=== PATIENT | female | born 1960 | race Caucasian/White ===

== ENCOUNTER 2024-07-07 16:31 | Emergency (ER) | payer SELFPAY ==
[2024-07-07] MEDS ORDERED: ONDANSETRON 4 MG/2 ML VIAL ONE (16:42)
[2024-07-07] MEDS ORDERED: MORPHINE 4 MG/ML SYR ONE (16:42)
--- NOTE | 2024-07-07 17:23 | RAD REPORT ---
EXAMINATION: Stone Protocol CLINICAL INDICATION: Female, 64 years old.RIGHT FLANK PAIN TECHNIQUE: CT abdomen and pelvis was performed using a stone protocol, without IV contrast, as per de partment protocol. Axial, sagittal and coronal reconstructions were obtained. One or more of the following dose reduction techniques were used: Automated exposure control, adjustment of the mA and/o r kV according to the patient size, and/or iterative reconstruction. Unless otherwise specified, incidental findings do not require dedicated imaging follow-up. [id number]. IV CONTRAST: Not administered. COMPARISON: None FINDINGS: The lack of intravenous contrast limits the sensitivity of this exam for evaluation of solid visceral organs, vascular structures, and retroperitoneum. LOWER CHEST: No acute process identified.No significant pericardial effusion. Breast prostheses. Smal l hiatal hernia UPPER GI: No significant abnormality. LIVER: Benign appearing low density liver lesions. No suspicious mass. GALLBLADDER/BILE DUCTS: No biliary ductal dilatation.? PANCREAS: No mass, ductal dilation, or carolyn-pancreatic fluid. SPLEEN: Unremarkable. ADRENALS: No adrenal masses. KIDNEYS AND URETERS: Mild right-sided hydroureteronephrosis secondary to a 3 mm stone at the right UV J.Limited evaluation for renal lesions in the absence of IV contrast.Possible punctate renal calculi versus papillary tip calcifications.Right-sided perinephric stranding. ABDOMINAL AORTA AND OTHER VESSELS: Mild atherosclerotic changes. PERITONEUM: No abnormal free fluid. No free air. LYMPH NODES: No pathologic lymphadenopathy. ABDOMINAL WALL: Unremarkable SMALL BOWEL/COLON: Small bowel has normal course and caliber. No colonic wall thickening or pericolon ic inflammatory changes.Normal appendix. URINARY BLADDER: Underdistended but grossly unremarkable. REPRODUCTIVE ORGANS: No pathologic process. MUSCULOSKELETAL: No acute or suspicious osseous abnormality. ADDITIONAL FINDINGS: None. IMPRESSION: Mild right-sided hydroureteronephrosis secondary to a 3 mm stone at the right UVJ.
[2024-07-07] MEDS ORDERED: MAGNESIUM SULFATE 1 gm IVPB 1 GM/100 ML BAG IV ONE (17:32)
[2024-07-07] MEDS ORDERED: KETOROLAC 30 MG/ML INJ ONE (17:32)
[2024-07-07] MEDS ORDERED: TAMSULOSIN 0.4 MG SR CAP ONE (17:32)
[2024-07-07 17:46] LABS: Potassium 3.7 mEq/L (3.5-5.1)
[2024-07-07 17:47] LABS: Anion Gap 10.7 mEq/L (5.0-15.0)
[2024-07-07 17:48] LABS: Albumin 4.4 g/dL (3.4-5.0); Bilirubin Total 0.6 mg/dL (0.2-1.0); Globulin 4.3 g/dL (2.3-3.5); Protein, Total 8.7 g/dL (6.4-8.2)
[2024-07-07 17:49] LABS: RBC Red Blood Cell Count 4.71 M/uL (3.86-4.86)
[2024-07-07 17:50] LABS: Hematocrit 41.9 % (36.0-45.0); Hemoglobin 14.5 g/dL (12.0-15.0); MCH 30.8 pg (27.0-35.0); MCHC 34.6 g/dL (32.0-36.0); MCV 89.1 fL (80-100); Platelets 240 thou/uL (152-406)
[2024-07-07 17:51] LABS: Absolute Lymphocytes (CBC) 0.8 K/uL (0.7-4.9); Absolute Monocytes 0.5 K/uL (0.1-1.3); Absolute Neutrophil 10.6 K/uL (1.8-8.0); Basophils % 0.2 % (0-1.3); Lymphocytes % 6.7 % (15.3-44.8); MPV 9.2 fL (7.6-11.3); Neutrophils % 89.1 % (41.7-73.7); Nucleated Red Blood Cells % 0.2 % (0-0); Red Cell Distribution Width 13.4 % (12.1-15.2)
--- NOTE | 2024-07-07 18:20 | ER ---
Nurse's Notes [facility] Name: Maine Hernandez Age: 64 yrs Sex: Female : 1960 Arrival Date: 07/07/2024 Time: 16:31 Bed 17 Private MD: Diagnosis: Calculus of ureter Presentation: 07/07 16:37 Chief complaint: Patient states: right flank pain and vomiting that began this morning. aa5 Coronavirus screen: nausea, vomiting. Ebola Screen: Patient denies travel to an Ebola-affected area in the 21 days before illness onset. Initial Sepsis Screen: Does the patient meet any 2 criteria? No. Patient's initial sepsis screen is negative. Does the patient have a suspected source of infection? No. Patient's initial sepsis screen is negative. Risk Assessment: Do you want to hurt yourself or someone else? Patient reports no desire to harm self or others. Onset of symptoms was July 07, 2024. 16:37 Acuity: TIN 3 aa5 16:37 Method Of Arrival: Ambulatory aa5 Historical: - Allergies: 16:38 No Known Allergies; aa5 - Home Meds: 16:38 None [Active]; aa5 - PMHx: 16:38 Kidney stone; aa5 - PSHx: 16:38 breast implants; aa5 - Immunization history:: Adult Immunizations unknown. - Infectious Disease History:: Denies. - Social history:: Smoking status: Patient denies any tobacco usage or history of. - Family history:: not pertinent. - Hospitalizations: : No recent hospitalization is reported. Screenin:[address] [facility] ED Fall Risk Assessment (Adult) History of falling in the last 3 months, aa5 including since admission No falls in past 3 months (0 pts) Confusion or Disorientation No (0 pts) Intoxicated or Sedated No (0 pts) Impaired Gait No (0 pts) Mobility Assist Device Used No (0 pt) Altered Elimination No (0 pt) Score/Fall Risk Level 0 - 2 = Low Risk Oriented to surroundings, Maintained a safe environment, Educated pt \T\ family on fall prevention, incl call for assistance when getting out of bed, Assessed \T\ reinforced patient's understanding of fall precautions. Abuse screen: Denies threats or abuse. Nutritional screening: No deficits noted. Tuberculosis screening: No symptoms or risk factors identified. Assessment: 16:37 General: Appears uncomfortable, Behavior is calm, cooperative. Pain: Complains of pain aa5 in right flank Pain does not radiate. Quality of pain is described as sharp, Pain began today Is continuous. Neuro: Level of Consciousness is awake, alert, obeys commands, Oriented to person, place, time, situation. Cardiovascular: Patient's skin is warm and dry. Respiratory: Airway is patent Respiratory effort is even, unlabored, Respiratory pattern is regular, symmetrical. GI: Abdomen is round non-distended, Bowel sounds present X 4 quads. Abd is soft and non tender X 4 quads. Reports nausea, vomiting. : Reports difficulty voiding today. EENT: No signs and/or symptoms were reported regarding the EENT system. Derm: Skin is pink, warm \T\ dry. Musculoskeletal: Range of motion: intact in all extremities. 17:28 Reassessment: Patient states feeling better. Patient states symptoms have improved. aa5 17:28 Reassessment: Patient is alert, oriented x 3, equal unlabored respirations, skin aa5 warm/dry/pink. General: Appears comfortable. 18:52 Reassessment: Patient is alert, oriented x 3, equal unlabored respirations, skin aa5 warm/dry/pink. Patient states feeling better. Patient states symptoms have improved. Vital Signs: 16:37 BP 148 / 101; Pulse 85; Resp 18 S; Temp 97.6(TE); Pulse Ox 99% on R/A; Weight 77.11 kg aa5 (R); Height 5 ft. 5 in. (R); 17:40 BP 133 / 70; Pulse 80; Resp 18 S; Pulse Ox 99% on R/A; aa5 18:45 BP 121 / 78; Pulse 75; Resp 16 S; Pulse Ox 99% on R/A; aa5 16:37 Body Mass Index 28.29 (77.11 kg, 165.1 cm) aa5 ED Course: 16:37 Patient arrived in ED. aa5 16:37 Arm band placed on Patient placed in an exam room, on a stretcher. aa5 16:37 Patient has correct armband on for positive identification. Bed in low position. Call aa5 light in reach. Side rails up X 1. 16:38 Triage completed. aa5 16:38 Jt Shah MD is Attending Physician. rn 16:39 Mary Anne Denis, RN is Primary Nurse. aa5 16:42 No provider procedures requiring assistance completed. aa5 16:43 Initial lab(s) drawn, by me, sent to lab. Inserted saline lock: 20 gauge in right aa5 forearm, using aseptic technique. Blood collected. Flushed with 10 mL NS. 17:14 CT Stone Protocol In Process Unspecified. EDMS 18:20 Markell Mcleod MD is Referral Physician. rn 18:52 IV discontinued, intact, bleeding controlled, No redness/swelling at site. Pressure aa5 dressing applied. Administered Medications: 16:44 Drug: Ondansetron IVP 4 mg IVP once; over 2 minutes Route: IVP; Site: right forearm; aa5 16:50 Follow up: Response: No adverse reaction aa5 16:44 Drug: morphine IVP or IV 4 mg IVP once over 4 mins Route: IVP; Infused Over: 4 mins; aa5 Site: right forearm; 16:50 Follow up: Response: No adverse reaction aa5 17:37 Drug: Magnesium Sulfate IVPB 1 grams IVPB once over 1 hrs Route: IVPB; Infused Over: 1 aa5 hrs; Site: right forearm; 18:37 Follow up: IV Status: Completed infusion; IV Intake: 100ml aa5 17:37 Drug: Ketorolac IVP 15 mg IVP once Route: IVP; Site: right forearm; aa5 17:40 Follow up: Response: No adverse reaction aa5 17:38 Drug: Flomax PO 0.4 mg PO once Route: PO; aa5 18:52 Follow up: Response: No adverse reaction aa5 18:52 Drug: Ciprofloxacin PO 500 mg PO once Route: PO; aa5 18:52 Follow up: Response: No adverse reaction; Medication administered at discharge. aa5 Medication: 16:41 VIS not applicable for this client. aa5 Intake: 18:37 IV: 100ml; Total: 100ml. aa5 Outcome: 18:20 Discharge ordered by . rn 18:52 Discharged to home ambulatory, with significant other, aa5 18:52 Condition: improved 18:52 Discharge instructions given to patient, significant other, Instructed on discharge instructions, follow up and referral plans. medication usage, Demonstrated understanding of instructions, follow-up care, medications, Prescriptions given X 4, 18:59 Patient left the ED. aa5 Signatures: Dispatcher [employer] Jt Purdy MD MD rn Calderon, Audri, RN RN aa5
--- NOTE | 2024-07-07 18:20 | EDPHYS ---
Physician Documentation [facility] Name: Maine Hernandez Age: 64 yrs Sex: Female : 1960 Arrival Date: 07/07/2024 Time: 16:31 Bed 17 Private MD: ED Physician Jt Shah HPI: 07/07 16:49 This 64 yrs old Female presents to ER via Ambulatory with complaints of Flank Pain. rn 16:49 The patient complains of pain in the right mid back. The pain does not radiate. Onset: rn The symptoms/episode began/occurred this morning. Modifying factors: The symptoms are alleviated by nothing. the symptoms are aggravated by nothing. Severity of pain: At its worst the pain was moderate in the emergency department the pain is unchanged. The patient has experienced a previous episode. The patient has not recently seen a physician. Patient reports this morning started with right flank pain, nonradiating, associated with nausea and vomiting. Cannot get comfortable. Feels very similar to previous kidney stone in the past. No fever or chills. Having dysuria as well but no hematuria. No diarrhea. No chest pain. No known gallbladder or pancreas problems. Historical: - Allergies: 16:38 No Known Allergies; aa5 - Home Meds: 16:38 None [Active]; aa5 - PMHx: 16:38 Kidney stone; aa5 - PSHx: 16:38 breast implants; aa5 - Immunization history:: Adult Immunizations unknown. - Infectious Disease History:: Denies. - Social history:: Smoking status: Patient denies any tobacco usage or history of. - Family history:: not pertinent. - Hospitalizations: : No recent hospitalization is reported. ROS: 16:49 Constitutional: Negative for fever, chills, and weight loss, Cardiovascular: Negative rn for chest pain, palpitations, and edema, Respiratory: Negative for shortness of breath, cough, wheezing, and pleuritic chest pain, Abdomen/GI: Positive for right flank pain and vomiting : Positive for dysuria MS/Extremity: Negative for injury and deformity, Skin: Negative for injury, rash, and discoloration, Neuro: Negative for headache, weakness, numbness, tingling, and seizure, Exam: 16:49 Constitutional: This is a well developed, well nourished patient who is awake, alert, rn appears in pain Cardiovascular: Regular rate and rhythm. No pulse deficits. Respiratory: No increased work of breathing, no retractions or nasal flaring. Abdomen/GI: Soft, nontender, negative Shea, no rebound or guarding Vital Signs: 16:37 BP 148 / 101; Pulse 85; Resp 18 S; Temp 97.6(TE); Pulse Ox 99% on R/A; Weight 77.11 kg aa5 (R); Height 5 ft. 5 in. (R); 17:40 BP 133 / 70; Pulse 80; Resp 18 S; Pulse Ox 99% on R/A; aa5 18:45 BP 121 / 78; Pulse 75; Resp 16 S; Pulse Ox 99% on R/A; aa5 16:37 Body Mass Index 28.29 (77.11 kg, 165.1 cm) aa5 MDM: 16:39 Medical Screening Exam initiated rn 18:19 Differential diagnosis: nephrolithiasis. Data reviewed: vital signs, nurses notes, lab associate test result(s), radiologic studies, CT scan, and as a result, I will discharge patient. Counseling: I had a detailed discussion with the patient and/or guardian regarding the historical points, exam findings, and any diagnostic results supporting the discharge/admit diagnosis, lab results, radiology results, the need for outpatient follow up, to return to the emergency department if symptoms worsen or persist or if there are any questions or concerns that arise at home. Response to treatment: the patient's symptoms have markedly improved after treatment, and as a result, I will discharge patient. Special discussion: I discussed with the patient/guardian in detail that at this point there is no indication for admission to the hospital. It is understood, however, that if the symptoms persist or worsen the patient needs to return immediately for re-evaluation. ED course: Pain well-controlled, patient is smiling and laughing. 3 mm stone at the UVJ at the time of CT, pain markedly improved, might of passed it into the bladder. Will discharge home with as needed medications and return precautions. I have personally reviewed all of the results, including but not limited to blood tests and imaging deemed necessary to safely discharge this patient at this time. All results given to and printed out for patient. I personally went over all the results with the patient and answered all questions. Patient will follow-up with PCP and or specialist as discussed. Return precautions given and understood.. 07/07 16:42 Order name: CBC with Diff rn 07/07 16:42 Order name: CMP; Complete Time: 18:03 rn 07/07 16:42 Order name: Lipase; Complete Time: 18:03 rn 07/07 16:42 Order name: Urinalysis w/ reflexes rn 07/07 16:42 Order name: CT Stone Protocol; Complete Time: 17:25 rn 07/07 16:42 Order name: IV Saline Lock; Complete Time: 16:42 rn 07/07 16:42 Order name: Labs collected and sent; Complete Time: 16:42 rn Administered Medications: 16:44 Drug: Ondansetron IVP 4 mg IVP once; over 2 minutes Route: IVP; Site: right forearm; aa5 16:50 Follow up: Response: No adverse reaction aa5 16:44 Drug: morphine IVP or IV 4 mg IVP once over 4 mins Route: IVP; Infused Over: 4 mins; aa5 Site: right forearm; 16:50 Follow up: Response: No adverse reaction aa5 17:37 Drug: Magnesium Sulfate IVPB 1 grams IVPB once over 1 hrs Route: IVPB; Infused Over: 1 aa5 hrs; Site: right forearm; 18:37 Follow up: IV Status: Completed infusion; IV Intake: 100ml aa5 17:37 Drug: Ketorolac IVP 15 mg IVP once Route: IVP; Site: right forearm; aa5 17:40 Follow up: Response: No adverse reaction aa5 17:38 Drug: Flomax PO 0.4 mg PO once Route: PO; aa5 18:52 Follow up: Response: No adverse reaction aa5 18:52 Drug: Ciprofloxacin PO 500 mg PO once Route: PO; aa5 18:52 Follow up: Response: No adverse reaction; Medication administered at discharge. aa5 Disposition Summary: 07/07/24 18:20 Discharge Ordered Notes: Location: Home rn Problem: new rn Symptoms: have improved rn Condition: Stable rn Diagnosis - Calculus of ureter rn Followup: rn - With: Markell Mcleod MD - When: As needed - Reason: Recheck today's complaints, Re-evaluation by your physician Discharge Instructions: - Discharge Summary Sheet rn - Kidney Stones rn - Renal Colic rn - Dietary Guidelines to Help Prevent Kidney Stones rn Forms: - Medication Reconciliation Form rn - Antibiotic house registry rn - Prescription Opioid Use rn - Patient Portal Instructions rn - Leadership Thank You Letter rn Prescriptions: - Flomax 0.4 mg Oral capsule - take 1 capsule ORAL route daily Stop taking once you feel that you have passed rn your stone. Can make you dizzy and lightheaded; 10 capsule; Refills: 0, Product Selection Permitted - ondansetron 4 mg Oral Tablet,disintegrating - take 1 tablet ORAL route every 8 hours As needed; 12 tablet; Refills: 0, rn Product Selection Permitted - Cipro 500 mg Oral Tablet - take 1 tablet ORAL route every 12 hours for 7 days; 14 tablet; Refills: 0, rn Product Selection Permitted - Tramadol 50 mg Oral Tablet - take 1 tablet ORAL route every 8 hours as needed; 12 tablet; Refills: 0, rn Product Selection Permitted Signatures: Dispatcher [employer] EDMS Jt Shah MD MD rn Calderon, Audri, RN RN aa5 Corrections: (The following items were deleted from the chart) 16:43 16:43 CBC+H.LAB.BRZ ordered. EDMS EDMS 16:43 16:43 COMPREHENSIVE METABOLIC PANEL+C.LAB.BRZ ordered. EDMS EDMS 16:43 16:43 LIPASE+C.LAB.BRZ ordered. EDMS EDMS 16:43 16:43 Urinalysis+U.LAB.BRZ ordered. EDMS EDMS
[2024-07-07] MEDS ORDERED: CIPROFLOXACIN HCL 500 MG TAB ONE (18:43)
[2024-07-07 19:28] VITALS: TEMP 97.6; O2SAT 99
[2024-07-07 19:29] VITALS: BP 133/70
[2024-07-07 19:47] LABS: Specific Gravity 1.026 (1.005-1.030); Sqamous Epithelial <5 /HPF (None Seen); Urine Bacteria <20 /HPF (<20); Urine Bilirubin NEGATIVE (Negative); Urine Blood 1+ (Negative); Urine Clarity Clear (Clear); Urine Color Light-Yellow (Yellow); Urine Crystals Unidentified Few /HPF (None Seen); Urine Culture Reflex Order NOT NEEDED; Urine Glucose NEGATIVE (Negative); Urine Ketones 1+ (Negative); Urine Microscopic Reflex YN ORDER UMIC; Urine Mucus Slight /HPF (None Seen); Urine Nitrite NEGATIVE (Negative); Urine Protein 1+ (Negative); Urine Urobilinogen Normal (Normal); Urine WBC <5 /HPF (<5); Urine Yeast (Budding) Trace /HPF (None Seen); Urine pH 6.5 (5.0-7.0)
[2024-07-07 22:21] LABS: Band Neutrophils 13 % (0-1); Blood Morphology Comment NOT SEEN (NOT SEEN); Differential Total Cells Count 100; Lymphocytes 6 % (15-42); Monocytes 5 % (0-10); Platelet Estimate ADEQ; Reactive Lymphocytes 2 %; Segmented Neutrophils 74 % (40-80)
== END 2024-07-07 18:59 | disposition home or self-care (01) ==
LOC: ER 16:31
DX: N20.1 Calculus of ureter (principal); Z87.442 Personal history of urinary calculi; Z98.82 Breast implant status
CPT/HCPCS: 36415; 74176; 76377; 80053; 81001; 83690; 85025; 96365; 96375; 99284; J2405; J3475